=== PATIENT | female | born 1980 | race Caucasian/White ===

== ENCOUNTER 2016-07-21 16:25 | Inpatient (IN) | payer BC ==
--- NOTE | ~2016-07-21 | DS ---
Unit #: [id number] #: [id number] Patient: AVINASH FAM [id number] [facility] [address] [place] [address] [id number] I MR#: [id number] NAME: AVINASH FAM ROOM: [facility] Age: 36 Sex: F Admission Date: 07/21/2016 : 1980 Discharge Date: 07/23/2016 Attending Physician: Constantin Ortiz M.D. Primary Care Physician: Kandice Roberts DISCHARGE SUMMARY REASON FOR ADMISSION Severe depression and anxiety. DIAGNOSTIC STUDIES LABORATORY RESULTS: Urine drug screen positive for benzodiazepine, amphetamine, marijuana, and opioids. HOSPITAL COURSE The patient was admitted to inpatient unit on 07/21/2016 and discharged on 07/23/2016. The patient was able to maintain safe behavior. Denied any thoughts of harming self or others. Denied any psychotic symptom. Attended chemical dependency group, medication management, psychoeducation, and structured milieu. The patient requested for discharge. The patient is not holdable, not suicidal or homicidal at this time. Subsequently, the patient was discharged with a plan to follow up in outpatient program. DISCHARGE MEDICATIONS Neurontin 300 mg t.i.d., Vistaril 50 mg t.i.d., and Seroquel XR 150 mg at bedtime for mood stabilization. Advised to discontinue Xanax and Wellbutrin. DISCHARGE DIAGNOSES Psychiatric: 1. Major depressive disorder, recurrent, severe, F33.2. 2. Anxiety disorder, not otherwise specified, F41.9. 3. Agoraphobia with panic disorder, F40.01. 4. History of polysubstance abuse. Secondary diagnosis: Deferred. Medical diagnoses: History of asthma, colitis, fibromyalgia. Stressors: Psychosocial stressors. DISCHARGE INSTRUCTIONS The patient is to follow up in outpatient clinic as per aids social worker. CONDITION ON DISCHARGE The patient was pleasant and cooperative. Denied any psychotic symptom or any suicidal ideation. PROGNOSIS Guarded. Unit #: [id number] #: [id number] Patient: AVINASH FAM DIET AND ACTIVITY As tolerated. The patient at this time is not holdable. Dictated by... Tammy Mitchell/catina TD: 07/24/2016 23:42 JOB #: [id number] DISCHARGE SUMMARY Page 1 of 1 X Constantin Ortiz MD DISCHARGE SUMMARY
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
--- NOTE | ~2016-07-21 | PA ---
Unit #: [id number] #: [id number] Patient: CYNDY FAM [id number] [facility] [address] [place] [address] [id number] I MR#: [id number] NAME: CYNDY FAM ROOM: [facility] Age: 36 Sex: F Admission Date: 07/21/2016 : 1980 Date of Assessment: 07/22/2016 Attending Physician: Constantin Ortiz M.D. Admitting Physician: Constantin Ortiz M.D. Primary Care Physician: Kandice Roberts PSYCHIATRIC ASSESSMENT INFORMANTS The patient's reliability, fair; chart reliability, good. CHIEF COMPLAINT Severe depression and anxiety. HISTORY OF PRESENT ILLNESS Ms. Cyndy Fam is a 36-year-old female, seen on [facility] with the above-mentioned complaint. The patient reported that she has a history of depression and anxiety for a long period of time. History of outpatient followup with [facility] and her doctor recommended inpatient admission at this time due to worsening of her depression. The patient presented with increase in the anxiety, depression, suicidal ideation. The patient reported I feel like hurting myself. I do not know I would do it, but I feel I do not need to be here. My daughter and everyone does better. The patient reported feeling of hopelessness, worthlessness, helplessness. The patient reported feeling of apathy and "I do not care about anything anymore." The patient reported recent triggers are being evicted, stated that "I feel like I have lost everything." The patient was unable to contract for safety at this time. Denied any homicidal ideation or any plan. The patient was anxious, tearful, reported that she has been out of her medication, she was on Xanax. The patient presented with anxiety, depression, restlessness, heavy breathing. The patient reported delusions and hallucination within the past month. The patient reported her psychiatrist discharged her from the practice due to not having Xanax in her drug screening. The patient stated that I was prescribed Xanax and I guess they thought that I was giving it away or something. The patient reported that she has not been in individual therapy, and history of depression and anxiety since age 17. Reported needing inpatient admission at this time for psychiatric stabilization. PAST PSYCHIATRIC HISTORY Remarkable for history of outpatient treatment as mentioned above. FAMILY HISTORY AND SOCIAL HISTORY The patient reports good support system. History of depression, anxiety, bipolar disorder in the family on the father's side. No known history of any abuse. MEDICAL HISTORY Remarkable for history of asthma, colitis, fibromyalgia. Musculoskeletal; muscle strength and tone, no atrophy or abnormal movement. Gait normal. Unit #: [id number] #: [id number] Patient: CYNDY FAM MEDICATION HISTORY None currently but was treated with Xanax in the past. ALLERGIES No known drug allergies. SUBSTANCE ABUSE HISTORY The patient reported history of alcohol use, age of onset 15; marijuana, age of onset 15; crack cocaine, age of onset 25; opioid, age of onset 13; amphetamine, age of onset 36; synthetic drug, age of onset 33. The patient reported that she went to a [facility] in the past. Reported history of blackout, but no history of any HIV, hepatitis, history of withdrawal symptom. Denied any history of IV drug abuse. Currently, reporting abdominal cramping, muscle cramping, diarrhea, depressed mood, headache, irritability, nervousness, poor appetite, poor concentration, restlessness, sleep problems, and unpleasant dreams. REVIEW OF SYSTEMS HEENT: Eyes, clear. Ears, nose, mouth, and throat; clear. CARDIOVASCULAR: Unremarkable. RESPIRATORY: Unremarkable. GI: Unremarkable. : Unremarkable. SKIN: Unremarkable. LYMPH NODE: Unremarkable. NEUROLOGIC: Unremarkable. ENDOCRINE: Unremarkable. HEMATOLOGIC: Unremarkable. ALLERGIC/IMMUNOLOGIC: Unremarkable. MUSCULOSKELETAL: Muscle strength and tone, no atrophy or abnormal movement. Gait normal. MENTAL STATUS EXAMINATION CONSTITUTIONAL: Measurement of vital signs; temperature 98.2, pulse 80, respirations 18, blood pressure 110/72. Height 5 feet 3 inches, weight 155 pounds. GENERAL APPEARANCE: The patient dressed casually. The patient did not show any facial deformity. MUSCULOSKELETAL: Muscle strength and tone, no atrophy or abnormal movement. Gait normal. PSYCHIATRIC EXAMINATION Description of speech; regular rate, normal volume, normal articulation, coherent. Description of thought process, goal directed. Description of association, intact. Description of abnormal psychotic thinking; the patient denied any hallucination or delusions, but mood lability, depression, suicidal ideation. Description of the patient's judgment; concerning everyday activity, poor. Social situation, poor. Concerning psychiatric condition, poor. Complete mental status examination; oriented in time, place, and person. Recent and remote memory, fair. Attention span and concentration, fair. Language, able to name object and repeat phrases. Fund of knowledge, aware of current event and passive vocabulary intact. Mood and affect, sad and dysphoric. Insight and judgment, fair to poor. ASSETS AND LIABILITIES Unit #: [id number] #: [id number] Patient: CYNDY FAM Assets; the patient articulate, able to take care of her ADL. Liability; history of depression, anxiety. ADMITTING DIAGNOSES Psychiatric: 1. Major depressive disorder, recurrent, severe, F33.2. 2. Anxiety disorder, not otherwise specified, F41.9. 3. Agoraphobia with panic disorder, F40.01. Secondary diagnosis: Deferred. Medical diagnoses: History of asthma, colitis, fibromyalgia. Stressors: Psychosocial stressors. PSYCHIATRIC PLAN AND TREATMENT GOAL 1. Advised to admit the patient on the inpatient unit. Provide safe, supportive, and structured environment. 2. Ordered labs; CBC, CMP, UA, and UDS. 3. Precaution for self-harm. The patient to attend all the programming with group therapy, individual therapy, possible family therapy. 4. Recommending at this time to start with Seroquel XR 150 mg at bedtime, Vistaril 50 mg t.i.d., Neurontin 300 mg t.i.d. Advised to discontinue Wellbutrin and Xanax. If needed, consider further adjustment of medication. Treatment goal to attain euthymic mood, gain insight into her problem, and learn coping skills. DISCHARGE PLAN Plan to stabilize the patient and consider followup in outpatient program. ESTIMATED LENGTH OF STAY 3 to 5 days. Dictated by... Constantin Ortiz M.D. NIKKIE/catina TD: 07/22/2016 23:02 JOB #: [id number] PSYCHIATRIC ASSESSMENT Page 1 of 1 X Constantin Ortiz MD X PSYCHIATRIC ASSESSMENT
--- NOTE | ~2016-07-21 | PN ---
Unit #: [id number] #: [id number] Patient: CYNDY FAM [id number] [facility] [address] [place] [address] [id number] I MR#: [id number] NAME: CYNDY FAM ROOM: [facility] Age: 36 Sex: F Admission Date: 07/21/2016 : 1980 Attending Physician: Constantin Ortiz M.D. Admitting Physician: Constantin Ortiz M.D. Primary Care Physician: Kandice HOWELL PROGRESS NOTES DATE OF SERVICE 07/22/2016 DISCUSSION Ms. Cyndy Fam is a 36-year-old female seen on 07/22/2016. Patient interviewed, chart reviewed, I obtained information from nursing staff. Patient seemed somewhat anxious, nervous. Mood labile. Patient is still having mood lability, guarded, paranoid. COMPLETE REVIEW OF SYSTEMS Unremarkable. MENTAL STATUS EXAMINATION GENERAL APPEARANCE: Patient dressed casually. ATTENTION SPAN AND CONCENTRATION: Fair. Oriented in place and person. MOOD AND AFFECT: Labile. SPEECH: Rapid. THOUGHT PROCESS: Circumstantial. Patient denied any thoughts of harming self or others, but having passive SI. RECENT AND REMOTE MEMORY: Poor. INSIGHT AND JUDGMENT: Poor. DIAGNOSES Bipolar mood disorder, NOS Anxiety disorder, NOS ASSESSMENT/PLAN Advised to continue with current medication and therapeutic protocol. If needed, consider further adjustment in medication. Dictated by... Tammy Mitchell/gabriela TD: 07/22/2016 20:17 JOB #: [id number] Unit #: [id number] #: [id number] Patient: CYNDY FAM PROGRESS NOTES Page 1 of 1 X Constantin Ortiz MD PROGRESS NOTE
[2016-07-22 08:52] LABS: URINE SOURCE CLEAN CATCH
[2016-07-22 10:01] LABS: BASOPHIL% 0.7 % (0-2.5); EOSINOPHIL# 0.2 X10e3 (0-0.7); EOSINOPHIL% 3.3 % (0.0-7.0); HEMATOCRIT 44.9 % (35.0-45.0); HEMOGLOBIN 15.1 gm/dL (12.0-16.0); LYMPHOCYTE# 3.8 X10e3 (1.0-3.5); LYMPHOCYTE% 55.6 % (17.0-45.0); MEAN CELL VOLUME 92.5 FL (83-96); MEAN CORPUSCULAR HEMOGLOBIN 31.1 PG (28-34); MEAN CORPUSCULAR HGB CONC 33.6 g/dL (30-36); MONOCYTE# 0.8 X10e3 (0-1.0); MONOCYTE% 11.5 % (3.0-12.0); NEUTROPHIL% 28.9 % (40-75); PLATELET COUNT 265 X10e3 (140-420); RED BLOOD COUNT 4.85 X10e (3.90-5.30); RED CELL DISTRIBUTION WIDTH 12.8 % (11.0-15.5); WHITE BLOOD COUNT 6.8 X10e3 (4.0-10.5)
[2016-07-22 10:03] LABS: URINE APPEARANCE CLOUDY; URINE BLOOD NEG (NEG); URINE COLOR YELLOW; URINE GLUCOSE NORM (NORM); URINE KETONE 1+ (NEG); URINE LEUKOCYTE ESTERASE 3+ (NEG); URINE NITRATE NEG (NEG); URINE PROTEIN NEG (NEG); URINE SPECIFIC GRAVITY 1.025 (1.003-1.035); URINE UROBILINOGEN NORM (NORM)
[2016-07-22 10:10] LABS: DIFF IND YES
[2016-07-22 10:32] LABS: URINE BILIRUBIN NEG (NEG)
[2016-07-22 10:36] LABS: URBCS1 AUWI NEG /[HPF] (0-2)
[2016-07-22 10:37] LABS: URINE BACTERIA AUWI 2+ (NEGATIVE); URINE CRYSTALS CALCIUM OXALATE /[HPF]; URINE SQUAMOUS EPITHELIAL CELL MODERATE /[HPF]; UWBCS1 AUWI 50-100 (0-5)
[2016-07-22 10:38] LABS: URINE AMORPHOUS SEDIMENT AMORP URATES; URINE MUCUS PRESENT
[2016-07-22 11:04] LABS: ALBUMIN SERUM 4.5 g/dL (3.5-5.0); BILIRUBIN,TOTAL 1.4 mg/dL (0.2-2.0); BUN/CREATININE RATIO 11.11; CALCIUM SERUM 9.6 mg/dL (8.4-10.2); CREATININE SERUM 0.9 mg/dL (0.6-1.4); GLOM FILT RATE Estimated 82.3 mL/min (>60); POTASSIUM 3.9 mmol/L (3.5-5.1)
[2016-07-22 12:18] LABS: AMPHETAMINE POS (NEG); BARBITURATES NEG (NEG); BENZODIAZEPINES POS (NEG); COCAINE NEG (NEG); MARIJUANA POS (NEG); OPIATES POS (NEG); TRICYCLIC ANTIDEPRESSANTS NEG (NEG); U METHADONE NEG (NEG)
[2016-07-22 12:22] LABS: PLATELET ESTIMATE NORMAL (NORMAL)
== END 2016-07-23 15:50 | disposition home or self-care (01) | DRG 885 ==
LOC: P2L 19:52
PROVIDERS: Psychiatry & Neurology Psychiatry
DX: F33.2 Major depressive disorder, recurrent severe without psychotic features (principal); R45.851 Suicidal ideations; F41.9 Anxiety disorder, unspecified; F40.01 Agoraphobia with panic disorder; J45.909 Unspecified asthma, uncomplicated; M79.7 Fibromyalgia; Z81.8 Family history of other mental and behavioral disorders
CPT/HCPCS: 73130; 80053; 80307; 81003; 84703; 85025